=== PATIENT | male | born 1980 | race Caucasian/White ===

== ENCOUNTER 2016-10-12 12:59 | Emergency (ER) | payer SELFPAY ==
[~2016-10-12] VITALS: Ht 170.2 cm; Wt 80.5 kg
[2016-10-12 13:12] VITALS: Ht 170.2 cm; Wt 80.5 kg
== END 2016-10-12 17:07 | disposition left against medical advice (07) ==
LOC: FTE 12:59
DX: Z53.21 Procedure and treatment not carried out due to patient leaving prior to being seen by health care provider (principal)